=== PATIENT | female | born 1935 | race Caucasian/White ===

== ENCOUNTER → 2016-10-11 | Day surgery (SDC) | payer OTHER ==
[~2016-10-11] MED LIST: ASPI81TA82 PO; ATEN-100 PO; ATOR10TA PO; CALCTAB98 PO; PROPOFOL 100 MG/10 ML INJ IV ONE; SODIUM CHLORIDE 0.9% INJ 10 ML ONE; SPIR25TA PO; TAB-TAB PO; TRIAMCINOLONE ACETONIDE 40 MG/ML VIAL ONE
== END | disposition home or self-care (01) ==
LOC: ESDC 08:56
PROVIDERS: ATTEND Anesthesiology Pain Medicine
DX: M48.06 Spinal stenosis, lumbar region (principal)
CPT/HCPCS: 62323; 76000; J3301

== ENCOUNTER 2017-12-25 09:49 | Emergency (ER) | payer OTHER ==
[~2017-12-25] VITALS: Ht 167.6 cm; Wt 73.0 kg
[~2017-12-25 09:49] MED LIST changes: -PROPOFOL 100 MG/10 ML INJ IV ONE; -SODIUM CHLORIDE 0.9% INJ 10 ML ONE; -TRIAMCINOLONE ACETONIDE 40 MG/ML VIAL ONE
[2017-12-25 09:57] VITALS: BP 212/95; PULSE 79; RESP 20; TEMP 97.5; O2SAT 95
[2017-12-25] MEDS ORDERED: VITA500T35 PO (10:21)
[2017-12-25] MEDS ORDERED: ATOR20TA15 PO (10:21)
[2017-12-25] MEDS ORDERED: SERT-132 PO (10:21)
[2017-12-25] MEDS ORDERED: ATEN50TA PO (10:21)
[2017-12-25] MEDS ORDERED: ASPI1TAB57 PO (10:21)
[2017-12-25] MEDS ORDERED: CALC600T55 CHEW (10:21)
[2017-12-25] MEDS ORDERED: OCUVTAB4 PO (10:22)
--- NOTE | 2017-12-25 10:39 | PD ---
HPI Chief Complaint: Musculoskeletal Complaint Time Seen by Provider: 10:27 Travel History International Travel<30 days: No Contact w/Intl Traveler<30days: No Traveled to known affect area: No History of Present Illness HPI 82-year-old female presents emergency department for evaluation of right rib pain that started Sunday after fall. Says that she was getting ready for bed when she fell, landing on the floor. She does not know how she fell. Denies loss of consciousness, blurred vision. Denies head trauma. Denies neck or back pain. Says her right rib pain is located in the mid anterior axillary that is worse with breathing and movement, decreases somewhat with rest. Described as sharp and clicking, moderate in severity at its worse. Denies shortness of breath or chest pain. Says she has chronic pain and takes pain medications daily. PFSH Past Medical History Hx Anticoagulant Therapy: Yes (ASA 81MG) Arthritis: Yes Blood Disorders: No Depression: Yes Cancer: Yes (SKIN CANCER) Cardiovascular Problems: Yes High Cholesterol: Yes Chemotherapy: No COPD: Yes Diabetes: No Diminished Hearing: No Endocrine: No Gastrointestinal Disorders: No Genitourinary: Yes Headaches: Yes Hypertension: Yes Immune Disorder: No Musculoskeletal: Yes Psychiatric: No Reproductive: No Respiratory: Yes (COPD) Radiation Therapy: No Influenza Vaccination: No ?: Not Past Surgical History Abdominal Surgery: No Cardiac Surgery: No Ear Surgery: No Endocrine Surgery: No Eye Surgery: No Genitourinary Surgery: No Gynecologic Surgery: No Joint Replacement: Yes (BILAT HIPS) Neurologic Surgery: No Oral Surgery: No Pacemaker: No Thoracic Surgery: No Other Surgery: Yes Social History Alcohol Use: Yes (VERY RARELY) Tobacco Use: Yes (1/2 PACK PER DAY) Substance Use: No Allergies-Medications (Allergen,Severity, Reaction): Coded Allergies: No Known Allergies (Verified Adverse Reaction, Unknown, 12/25/17) Reported Meds & Prescriptions Reported Meds & Active Scripts Active Reported Preservision Areds (Multiple Vitamins W/ Minerals) 1 Tab 1 Tab PO BID Vitamin B12 (Cyanocobalamin) 500 Mcg Tab 500 Mcg PO DAILY Aspirin 81 (Aspirin) 81 Mg Tabdr 81 Mg PO HS Atorvastatin (Atorvastatin Calcium) 20 Mg Tab 20 Mg PO HS Sertraline (Sertraline HCl) 50 Mg Tab 50 Mg PO DAILY Atenolol 50 Mg Tab 50 Mg PO DAILY Calcium + D3 (Calcium Carbonate-Vitamin D) 600-200 Mg-Unit Tab 1 Tab CHEW BID Review of Systems Except as stated in HPI: all other systems reviewed are Neg Physical Exam Narrative GENERAL: Well-nourished, well-developed patient, in NAD SKIN: Focused skin assessment warm/dry. No rashes or lesions. HEAD: Normocephalic. Atraumatic. EYES: No scleral icterus. No injection or drainage. PERRLA, EOMI THROAT: No pharyngeal injection, exudates, or tonsillar hypertrophy. Airway is patent. NECK: Supple, trachea midline. No JVD or lymphadenopathy. No meningismus. No midline tenderness CARDIOVASCULAR: Regular rate and rhythm without murmurs, gallops, or rubs. RESPIRATORY: Breath sounds equal bilaterally. No accessory muscle use. No wheezes, rales, or rhonchi MUSCULOSKELETAL: No cyanosis, or edema. Right anterior chest wall tender to palpation without crepitus or deformities. No ecchymosis or edema BACK: No CVA tenderness. No rash. No point tenderness on palpation of the spine. Data Data Last Documented VS Vital Signs Date Time Temp Pulse Resp B/P (MAP) Pulse Ox O2 Delivery O2 Flow Rate FiO2 12/25/17 09:57 97.5 79 20 212/95 (134) 95 Orders Orders Chest, Pa & Lat (12/25/17 ) Resp Incentive Spirometry (12/25/17 ) Ed Discharge Order (12/25/17 11:14) MDM Medical Decision Making Medical Screen Exam Complete: Yes Emergency Medical Condition: Yes Differential Diagnosis Right rib fracture, contusion, chest wall contusion, pneumothorax Narrative Course 82-year-old female presents emergency department evaluation of right rib pain after a fall that occurred Sunday. She denies head trauma. Denies headache, blurred vision. Denies neck or back pain. She has a history of chronic pain and takes medication daily for this. Incentive spirometer ordered to ensure proper lung inflation. No fracture seen on x-ray. Patient has a rib contusion. I strongly advise her to follow-up with a primary care physician. Encouraged adequate inflation of her lungs to reduce complications. Diagnosis Primary Impression: Rib contusion Qualified Codes: S20.211A - Contusion of right front wall of thorax, initial encounter Referrals: Primary Care Physician Additional Instructions: Use the incentive spirometer as instructed. Call frequently to allow the lungs to expand appropriately. You may use an ice pack or pillow as a bracing device when you take deep breaths or coughing. You have a rib contusion. There is no red fracture seen on x-ray today. Disposition: 01 DISCHARGE HOME Condition: Stable Bhavana Raza December 25, 2017 10:39
--- NOTE | 2017-12-25 11:08 | RADRPT ---
EXAM DATE: 12/25/2017 10:59 AM EDT AGE/SEX: 82 years / Female INDICATIONS: Fall, right side rib pain under breast. CLINICAL DATA: This is the patient's initial encounter. Patient reports that signs and symptoms have been present for 4 - 6 days and indicates a pain score of 10/10. MEDICAL/SURGICAL HISTORY: Chronic obstructive pulmonary disease. Hypertension. None. COMPARISON: No prior [facility] exams available for comparison. FINDINGS: PA and lateral views of the chest demonstrate a normal-sized cardiac silhouette with tortuous descend ing thoracic aorta. No effusion, consolidation, or pneumothorax is identified. Bones and soft tissues demonstrate no acute finding. There are degenerative changes of the thoracic spine with dextroscolio sis of the upper lumbar spine. No fracture is seen. CONCLUSION: No acute cardiopulmonary abnormality is identified. Additionally, no rib fracture is seen. Electronically signed by: Nasir Oreilly MD 12/25/2017 11:07 AM EDT
== END 2017-12-25 11:23 | disposition home or self-care (01) ==
LOC: PHEFT 09:49
DX: S20.211A Contusion of right front wall of thorax, initial encounter (principal); G89.29 Other chronic pain; M19.90 Unspecified osteoarthritis, unspecified site; E78.00 Pure hypercholesterolemia, unspecified; J44.9 Chronic obstructive pulmonary disease, unspecified; I10 Essential (primary) hypertension; F32.9 Major depressive disorder, single episode, unspecified; F17.200 Nicotine dependence, unspecified, uncomplicated; W06.XXXA Fall from bed, initial encounter
CPT/HCPCS: 71046; 94150; 99283